=== PATIENT | male | born 2000 | race Caucasian/White ===

== ENCOUNTER 2019-05-27 21:05 | Emergency (ER) | payer BC ==
[2019-05-27] MEDS ORDERED: Benzocaine 20% Spray 60 ML CAN ONE (22:58)
[2019-05-27] MEDS ORDERED: Lidocaine 1% w/Epinephrine 1:100K 20 ML VIAL ONE (22:58)
[2019-05-27] MEDS ORDERED: Morphine 2 MG/ML SYRINGE ONE (23:04)
[2019-05-27] MEDS ORDERED: Clindamycin/D5W 900 mg/50 ml Premix Bag ONE (23:37)
--- NOTE | 2019-05-28 05:27 | CON ---
DATE OF CONSULTATION: 05/27/2019 CONSULTING PHYSICIAN: Dr. Irene. REASON FOR CONSULTATION: Possible peritonsillar abscess. HISTORY OF PRESENT ILLNESS: Mr. Yoo is a 18-year-old male who has had a week history of upper respiratory tract infection that has progressively worsened to a sore throat and now having significant pain and difficulty swallowing. He was seen yesterday in the ER and treated with antibiotics and a steroid burst, felt better for a while, but after the steroids were off, started having increased difficulty again, was seen again today in the ER and had a CT scan performed and was read as showing evidence of a peritonsillar abscess and was sent here for further evaluation and treatment of this peritonsillar abscess. He is complaining of pain on swallowing and difficulty swallowing. He has not had any difficulty breathing. He has been running fever and complaining of pain on the left side of his face and ear. He does not have any significant history of tonsil problems and does have a history of ear infections. He denies any other significant medical problems. Please see his ER note for further details of his past medical history and review of systems reviewed on this date. PHYSICAL EXAMINATION: GENERAL: Well-developed, well-nourished white male, does not appear to be any significant distress. HEAD: Normocephalic, atraumatic. Eyes, pupils are equal, round, reactive to light. Extraocular movements are intact. Ears, both tympanic membranes are intact, mobile and clear. Nose shows normal mucosa. Septum is midline. No purulent drainage or infection is noted. Oral cavity and oropharynx shows a 2+ tonsil on the right side with some moderate exudate and a 4+ tonsil on the left side with significant exudate and erythema. There is no swelling of the soft palate or the anterior tonsillar pillar and no evidence of any trismus. NECK: Shows a 3 cm left jugular digastric node that is tender to the touch 2 cm on the right side. LUNGS: Clear to auscultation. HEART: Regular rate without murmur or gallop. NEUROLOGIC: Cranial nerves 3-12 are intact. IMAGING: Review of the CT scan shows indeed a phlegmon inside the left tonsil. It is not in the peritonsillar space and is not displacing the tonsil. There does not appear to be any abscess in the left and the peritonsillar space on either side. There is some significant lymphadenopathy in the jugulodigastric region. No other significant abnormalities were noted. IMPRESSION: Acute tonsillitis. It does not appear to have turned into a peritonsillar abscesses at this time, although he does have what appears to be a phlegmon in his left tonsil. I have recommended treatment with clindamycin, steroids for the next several days to help with swelling and pain control with narcotic pain medicine and hydration. Certainly if his symptoms continue to worsen, it may turn into a peritonsillar abscess that may need to be drained, but do not see anything that can be drained at this time. We will observe and he will contact me, if he has any further problems. Job ID: [id number]
== END 2019-05-28 01:14 | disposition home or self-care (01) ==
LOC: ERS 21:05
DX: K12.2 Cellulitis and abscess of mouth (principal); Z79.899 Other long term (current) drug therapy
CPT/HCPCS: 96365; 96375; J2001; J2270; J3490